=== PATIENT | female | born 1945 | race Caucasian/White ===

== ENCOUNTER 2022-01-25 16:50 | Inpatient (IN) | payer MEDICARE, OTHER ==
[~2022-01-25] VITALS: Ht 157.5 cm; Wt 67.6 kg
[2022-01-25 16:50] VITALS: BP_SYST 166
[2022-01-25] MEDS ORDERED: MORPHINE 4 MG INJ. 4 MG/ML VIAL IM ONE (17:45)
[2022-01-25 18:51] LABS: EOSINOPHILS % (AUTO) 1.1 % (0.0-4.0); HEMATOCRIT 28.5 % (36-48); HEMOGLOBIN 9.7 g/dL (12.0-16.0); LYMPHOCYTES # (AUTO) 0.7 K/uL (1.0-5.5); LYMPHOCYTES % (AUTO) 15.3 % (20.5-51.5); MEAN CORPUSCULAR HEMOGLOBIN 33 pg (27-31); MEAN CORPUSCULAR HGB CONC 34 % (32-36); MEAN CORPUSCULAR VOLUME 97 fL (79.0-98.0); MONOCYTES # (AUTO) 0.6 K/uL (0.0-1.0); MONOCYTES % (AUTO) 13.9 % (1.7-9.3); NEUTROPHILS % (AUTO) 68.7 % (40.0-70.0); PLATELET COUNT (AUTO) 167 K/uL (130-430); RED BLOOD CELL COUNT(AUTO) 2.94 MIL/uL (4.2-6.2); WHITE BLOOD COUNT (AUTO) 4.3 K/uL (4.8-10.8)
[2022-01-25 19:04] LABS: ANION GAP 16 (5-15); BILIRUBIN,URINE NEGATIVE (NEGATIVE); BLOOD, URINE 1+ (NEGATIVE); CALCIUM 8.8 mg/dL (8.4-11.0); CHLORIDE 99 mmol/L (98-107); CLARITY/URINE CLEAR (CLEAR); COLOR,URINE YELLOW (YELLOW); GLUCOSE 100 mg/dL (70-99); GLUCOSE,URINE NEGATIVE (NEGATIVE); KETONES,URINE NEGATIVE (NEGATIVE); LEUKOCYTE ESTERASE ,URINE NEGATIVE (NEGATIVE); NITRITE, URINE NEGATIVE (NEGATIVE); PH,URINE 5.5 (5.0-8.0); POTASSIUM 3.6 mmol/L (3.5-5.1); PROTEIN URINE 1+ (NEGATIVE); UREA NITROGEN, BLOOD 81 mg/dL (8-21); UROBILINOGEN,URINE 0.2 (0.2-1.0)
[2022-01-25 19:10] LABS: CREATININE 8.89 mg/dL (0.55-1.30)
[2022-01-25 19:14] LABS: BACTERIA,URINE FEW /HPF (None Seen); RBC,URINE 0-3 /HPF (0-3); WBC,URINE 0-3 /HPF (0-3)
[2022-01-25] MEDS ORDERED: MORPHINE 2 MG/ML INJ. SYRINGE IVP ONE (21:15)
[2022-01-25] MEDS ORDERED: NS 500 ML IV ONE (21:15)
[2022-01-25] MEDS ORDERED: ONDANSETRON HCL 4 MG/2 ML VIAL IVP PRN (21:45)
[2022-01-26 00:15] VITALS: BP_SYST 154
[2022-01-26] MEDS ORDERED: LORazepam 1 MG TABLET PO PRN (01:15)
[2022-01-26] MEDS ORDERED: LORazepam 1 MG TABLET PO ONE (01:15)
[2022-01-26 08:00] VITALS: BP_SYST 171
[2022-01-26 08:08] LABS: BASOPHILS % (AUTO) 0.9 % (0.0-2.0); EOSINOPHILS # (AUTO) 0.1 K/uL (0.0-0.4); EOSINOPHILS % (AUTO) 2.5 % (0.0-4.0); HEMATOCRIT 28.5 % (36-48); HEMOGLOBIN 9.9 g/dL (12.0-16.0); LYMPHOCYTES # (AUTO) 1.2 K/uL (1.0-5.5); LYMPHOCYTES % (AUTO) 26.3 % (20.5-51.5); MEAN CORPUSCULAR HEMOGLOBIN 34 pg (27-31); MEAN CORPUSCULAR HGB CONC 35 % (32-36); MEAN CORPUSCULAR VOLUME 97 fL (79.0-98.0); MONOCYTES # (AUTO) 0.6 K/uL (0.0-1.0); MONOCYTES % (AUTO) 13.2 % (1.7-9.3); NEUTROPHILS # (AUTO) 2.5 K/uL (1.8-7.7); NEUTROPHILS % (AUTO) 57.1 % (40.0-70.0); PLATELET COUNT (AUTO) 166 K/uL (130-430); RED BLOOD CELL COUNT(AUTO) 2.92 MIL/uL (4.2-6.2); RED CELL DISTRIBUTION WIDTH 19.2 % (9.0-15.0); WHITE BLOOD COUNT (AUTO) 4.5 K/uL (4.8-10.8)
[2022-01-26 08:23] LABS: ALANINE AMINOTRANSFERASE 23 U/L (12-78); ALBUMIN 2.9 g/dL (3.4-4.8); ANION GAP 16 (5-15); ASPARTATE AMINOTRANSFERASE 25 U/L (10-37); CALCIUM 8.3 mg/dL (8.4-11.0); CHLORIDE 101 mmol/L (98-107); GLUCOSE 80 mg/dL (70-99); POTASSIUM 3.4 mmol/L (3.5-5.1); TOTAL BILIRUBIN 0.3 mg/dL (0.0-1.0); UREA NITROGEN, BLOOD 82 mg/dL (8-21)
[2022-01-26 10:01] LABS: CREATININE 9.17 mg/dL (0.55-1.30)
[2022-01-26] MEDS ORDERED: POTASSIUM CHLORIDE 20 MEQ TAB.PRT.SR PO ONE (11:30)
[2022-01-26 12:18] VITALS: BP_SYST 107
[2022-01-26] MEDS ORDERED: iohexoL 350 mgI/mL, 100 ML INFUS..BTL IV ONE (13:07)
[2022-01-26 16:08] VITALS: BP_SYST 153
[2022-01-26] MEDS: LORazepam 1 MG TABLET PO PRN (18:59)
[2022-01-26 20:00] VITALS: BP_SYST 132
[2022-01-26] MEDS: METOPROLOL TARTRATE 50 MG TABLET PO SCH (21:00)
[2022-01-26] MEDS ORDERED: HEPARIN SODIUM,PORCINE 5,000 UNITS/ML VIAL ONE (23:11)
[2022-01-27] VITALS: BP_SYST 135
[2022-01-27] MEDS: LORazepam 1 MG TABLET PO PRN ×3 (01:59→17:12)
[2022-01-27 08:00] VITALS: BP_SYST 160
[2022-01-27] MEDS: PANTOPRAZOLE SODIUM 40 MG TAB PO SCH (08:55)
[2022-01-27] MEDS: METOPROLOL TARTRATE 50 MG TABLET PO SCH ×2 (08:55→20:13)
[2022-01-27] MEDS: FLUoxetine HCL 20 MG CAPSULE (PROzac) PO SCH (08:56)
[2022-01-27] MEDS: ATORVASTATIN 20 MG TABLET PO SCH (08:56)
[2022-01-27] MEDS: NEPHROVITE, (FOLIC ACID/VITAMIN B COMP W-C 1 TAB) PO SCH (08:57)
[2022-01-27] MEDS ORDERED: MEGESTROL ACETATE 400 MG/10 ML UDC PO ONE (11:00)
[2022-01-27] MEDS: HYDROcodone/ACETAMIN 5-325 MG TAB (NORCO/ VICODIN) PO PRN ×2 (11:18→17:57)
[2022-01-27] MEDS: LIDOCAINE PATCH 5% 1 EA TP PRN (11:18)
[2022-01-27 12:00] VITALS: BP_SYST 140
[2022-01-27] MEDS ORDERED: HYDR-3917 PO (12:43)
[2022-01-27] MEDS ORDERED: MEGE400O4 PO (12:45)
[2022-01-27 16:56] VITALS: BP_SYST 153
[2022-01-27 20:00] VITALS: BP_SYST 142
[2022-01-27] MEDS: MEGESTROL ACETATE 400 MG/10 ML UDC PO SCH (20:13)
[2022-01-28 00:17] VITALS: BP_SYST 161
[2022-01-28] MEDS: MORPHINE 2 MG/ML INJ. SYRINGE IVP PRN ×2 (01:32→16:57)
[2022-01-28] MEDS: METOPROLOL TARTRATE 50 MG TABLET PO SCH ×2 (09:00→21:02)
[2022-01-28] MEDS: MEGESTROL ACETATE 400 MG/10 ML UDC PO SCH ×2 (11:04→20:47)
[2022-01-28] MEDS: LORazepam 1 MG TABLET PO PRN ×2 (11:05→23:25)
[2022-01-28] MEDS: HYDROcodone/ACETAMIN 5-325 MG TAB (NORCO/ VICODIN) PO PRN (11:05)
[2022-01-28] MEDS: NEPHROVITE, (FOLIC ACID/VITAMIN B COMP W-C 1 TAB) PO SCH (11:05)
[2022-01-28] MEDS: ATORVASTATIN 20 MG TABLET PO SCH (11:06)
[2022-01-28] MEDS: PANTOPRAZOLE SODIUM 40 MG TAB PO SCH (11:06)
[2022-01-28] MEDS: FLUoxetine HCL 20 MG CAPSULE (PROzac) PO SCH (11:06)
[2022-01-28] MEDS ORDERED: *HEPARIN PER PHARMACY XX ONE (12:45)
[2022-01-28] MEDS ORDERED: HEPARIN SODIUM, PORCINE 10,000 UNITS/ 10 ML VIAL MC ONE (13:00)
[2022-01-28] MEDS ORDERED: HEPARIN SODIUM,PORCINE 5,000 UNITS/ML VIAL SUBCUT SCH (14:00)
[2022-01-28 15:35] VITALS: BP_SYST 140
[2022-01-28 15:53] LABS: BASOPHILS % (AUTO) 0.8 % (0.0-2.0); EOSINOPHILS % (AUTO) 1.2 % (0.0-4.0); HEMATOCRIT 31.5 % (36-48); HEMOGLOBIN 10.6 g/dL (12.0-16.0); LYMPHOCYTES # (AUTO) 0.6 K/uL (1.0-5.5); LYMPHOCYTES % (AUTO) 16.7 % (20.5-51.5); MEAN CORPUSCULAR HEMOGLOBIN 33 pg (27-31); MEAN CORPUSCULAR HGB CONC 34 % (32-36); MEAN CORPUSCULAR VOLUME 97 fL (79.0-98.0); MONOCYTES # (AUTO) 0.5 K/uL (0.0-1.0); MONOCYTES % (AUTO) 13.8 % (1.7-9.3); NEUTROPHILS # (AUTO) 2.6 K/uL (1.8-7.7); NEUTROPHILS % (AUTO) 67.5 % (40.0-70.0); PLATELET COUNT (AUTO) 192 K/uL (130-430); RED BLOOD CELL COUNT(AUTO) 3.25 MIL/uL (4.2-6.2); RED CELL DISTRIBUTION WIDTH 18.8 % (9.0-15.0); WHITE BLOOD COUNT (AUTO) 3.8 K/uL (4.8-10.8)
[2022-01-28 16:07] LABS: ALANINE AMINOTRANSFERASE 19 U/L (12-78); ALBUMIN 2.8 g/dL (3.4-4.8); ANION GAP 12 (5-15); ASPARTATE AMINOTRANSFERASE 26 U/L (10-37); CHLORIDE 100 mmol/L (98-107); CREATININE 3.34 mg/dL (0.55-1.30); GLUCOSE 91 mg/dL (70-99); POTASSIUM 3.5 mmol/L (3.5-5.1); TOTAL BILIRUBIN 0.7 mg/dL (0.0-1.0); UREA NITROGEN, BLOOD 23 mg/dL (8-21)
[2022-01-28 16:29] LABS: PROTHROMBIN TIME 10.1 SECS (9.5-12.5)
[2022-01-28 20:30] VITALS: BP_SYST 165
[2022-01-29 05:00] VITALS: BP_SYST 163
[2022-01-29] MEDS: HYDROcodone/ACETAMIN 5-325 MG TAB (NORCO/ VICODIN) PO PRN (05:02)
[2022-01-29] MEDS: LORazepam 1 MG TABLET PO PRN (12:13)
[2022-01-29] MEDS: FLUoxetine HCL 20 MG CAPSULE (PROzac) PO SCH (12:14)
[2022-01-29] MEDS: ATORVASTATIN 20 MG TABLET PO SCH (12:14)
[2022-01-29] MEDS: MEGESTROL ACETATE 400 MG/10 ML UDC PO SCH ×2 (12:14→20:50)
[2022-01-29] MEDS: NEPHROVITE, (FOLIC ACID/VITAMIN B COMP W-C 1 TAB) PO SCH (12:14)
[2022-01-29] MEDS: LIDOCAINE PATCH 5% 1 EA TP PRN (12:15)
[2022-01-29] MEDS: PANTOPRAZOLE SODIUM 40 MG TAB PO SCH (12:16)
[2022-01-29] MEDS: METOPROLOL TARTRATE 50 MG TABLET PO SCH ×2 (12:27→20:50)
[2022-01-29 12:30] VITALS: BP_SYST 158
[2022-01-29] MEDS: MORPHINE 2 MG/ML INJ. SYRINGE IVP PRN (13:39)
[2022-01-29] MEDS ORDERED: QUEtiapine FUMARATE 200 MG TAB.SR.24H PO SCH (13:45)
[2022-01-29] MEDS ORDERED: QUEtiapine FUMARATE 200 MG TAB.SR.24H PO ONE (14:30)
[2022-01-29 16:00] VITALS: BP_SYST 160
[2022-01-29 20:00] VITALS: BP_SYST 140
[2022-01-30] VITALS: BP_SYST 138
[2022-01-30] MEDS: MORPHINE 2 MG/ML INJ. SYRINGE IVP PRN ×2 (01:51→21:48)
[2022-01-30] MEDS: FLUoxetine HCL 20 MG CAPSULE (PROzac) PO SCH (11:00)
[2022-01-30] MEDS: ATORVASTATIN 20 MG TABLET PO SCH (11:00)
[2022-01-30] MEDS: MEGESTROL ACETATE 400 MG/10 ML UDC PO SCH ×2 (11:00→21:48)
[2022-01-30] MEDS: PANTOPRAZOLE SODIUM 40 MG TAB PO SCH (11:00)
[2022-01-30] MEDS: METOPROLOL TARTRATE 50 MG TABLET PO SCH ×2 (11:01→21:48)
[2022-01-30] MEDS: NEPHROVITE, (FOLIC ACID/VITAMIN B COMP W-C 1 TAB) PO SCH (11:01)
[2022-01-30 11:55] VITALS: BP_SYST 154
[2022-01-30 17:11] VITALS: BP_SYST 148
[2022-01-30] MEDS: QUEtiapine FUMARATE 200 MG TAB.SR.24H PO SCH (18:10)
[2022-01-31 01:03] VITALS: BP_SYST 159
[2022-01-31] MEDS: MORPHINE 2 MG/ML INJ. SYRINGE IVP PRN (02:31)
[2022-01-31 05:43] VITALS: BP_SYST 146
[2022-01-31 07:12] LABS: BASOPHILS % (AUTO) 0.7 % (0.0-2.0); EOSINOPHILS # (AUTO) 0.1 K/uL (0.0-0.4); EOSINOPHILS % (AUTO) 3.4 % (0.0-4.0); HEMATOCRIT 30.3 % (36-48); HEMOGLOBIN 10.2 g/dL (12.0-16.0); LYMPHOCYTES % (AUTO) 24.9 % (20.5-51.5); MEAN CORPUSCULAR HEMOGLOBIN 33 pg (27-31); MEAN CORPUSCULAR HGB CONC 34 % (32-36); MEAN CORPUSCULAR VOLUME 98 fL (79.0-98.0); MONOCYTES # (AUTO) 0.4 K/uL (0.0-1.0); MONOCYTES % (AUTO) 9.8 % (1.7-9.3); NEUTROPHILS # (AUTO) 2.4 K/uL (1.8-7.7); NEUTROPHILS % (AUTO) 61.2 % (40.0-70.0); PLATELET COUNT (AUTO) 183 K/uL (130-430); RED BLOOD CELL COUNT(AUTO) 3.11 MIL/uL (4.2-6.2); WHITE BLOOD COUNT (AUTO) 3.8 K/uL (4.8-10.8)
[2022-01-31 08:17] LABS: ALANINE AMINOTRANSFERASE 15 U/L (12-78); ALBUMIN 2.9 g/dL (3.4-4.8); ANION GAP 15 (5-15); ASPARTATE AMINOTRANSFERASE 23 U/L (10-37); CALCIUM 9.2 mg/dL (8.4-11.0); CHLORIDE 94 mmol/L (98-107); GLUCOSE 107 mg/dL (70-99); PHOSPHORUS 7.6 mg/dL (2.7-4.5); POTASSIUM 3.6 mmol/L (3.5-5.1); TOTAL BILIRUBIN 0.5 mg/dL (0.0-1.0); UREA NITROGEN, BLOOD 68 mg/dL (8-21)
[2022-01-31 10:10] LABS: CREATININE 8.47 mg/dL (0.55-1.30)
[2022-01-31] MEDS: MEGESTROL ACETATE 400 MG/10 ML UDC PO SCH ×2 (11:30→21:16)
[2022-01-31] MEDS: METOPROLOL TARTRATE 50 MG TABLET PO SCH ×2 (11:31→21:00)
[2022-01-31] MEDS: NEPHROVITE, (FOLIC ACID/VITAMIN B COMP W-C 1 TAB) PO SCH (11:31)
[2022-01-31] MEDS: ATORVASTATIN 20 MG TABLET PO SCH (11:32)
[2022-01-31] MEDS: amLODIPine BESYLATE 5 MG TABLET PO SCH (11:32)
[2022-01-31] MEDS: PANTOPRAZOLE SODIUM 40 MG TAB PO SCH (11:32)
[2022-01-31] MEDS: FLUoxetine HCL 20 MG CAPSULE (PROzac) PO SCH (11:33)
[2022-01-31 13:45] VITALS: BP_SYST 154
[2022-01-31] MEDS: QUEtiapine FUMARATE 200 MG TAB.SR.24H PO SCH (18:44)
[2022-01-31 18:48] VITALS: BP_SYST 116
[2022-01-31 20:00] VITALS: BP_SYST 74
[2022-01-31 20:45] VITALS: BP_SYST 102
[2022-01-31] MEDS ORDERED: NS 500 ML IV ONE (21:00)
[2022-02-01] VITALS (7 sets, daily range): BP systolic 107–150
[2022-02-01] MEDS: MEGESTROL ACETATE 400 MG/10 ML UDC PO SCH ×2 (08:33→21:00)
[2022-02-01] MEDS: FLUoxetine HCL 20 MG CAPSULE (PROzac) PO SCH (08:34)
[2022-02-01] MEDS: NEPHROVITE, (FOLIC ACID/VITAMIN B COMP W-C 1 TAB) PO SCH (08:34)
[2022-02-01] MEDS: METOPROLOL TARTRATE 50 MG TABLET PO SCH ×2 (08:34→21:00)
[2022-02-01] MEDS: PANTOPRAZOLE SODIUM 40 MG TAB PO SCH (08:35)
[2022-02-01] MEDS: amLODIPine BESYLATE 5 MG TABLET PO SCH (08:35)
[2022-02-01] MEDS: ATORVASTATIN 20 MG TABLET PO SCH (08:35)
[2022-02-01 08:37] LABS: ANION GAP 10 (5-15); CHLORIDE 98 mmol/L (98-107); CREATININE 6.37 mg/dL (0.55-1.30); GLUCOSE 110 mg/dL (70-99); POTASSIUM 3.7 mmol/L (3.5-5.1); UREA NITROGEN, BLOOD 44 mg/dL (8-21)
[2022-02-01] MEDS ORDERED: LORazepam 2 MG/ML VIAL IVP ONE (12:45)
[2022-02-01] MEDS ORDERED: LORazepam 2 MG/ML VIAL IM ONE (13:00)
[2022-02-01] MEDS: QUEtiapine FUMARATE 100 MG TABLET PO SCH (21:00)
[2022-02-02] VITALS: BP_SYST 138
[2022-02-02 04:00] VITALS: BP_SYST 133
[2022-02-02 08:00] VITALS: BP_SYST 155
[2022-02-02] MEDS: METOPROLOL TARTRATE 50 MG TABLET PO SCH ×2 (10:03→20:37)
[2022-02-02] MEDS: MEGESTROL ACETATE 400 MG/10 ML UDC PO SCH ×2 (10:03→20:36)
[2022-02-02] MEDS: ATORVASTATIN 20 MG TABLET PO SCH (10:03)
[2022-02-02] MEDS: PANTOPRAZOLE SODIUM 40 MG TAB PO SCH (10:04)
[2022-02-02] MEDS: amLODIPine BESYLATE 5 MG TABLET PO SCH (10:04)
[2022-02-02] MEDS: FLUoxetine HCL 20 MG CAPSULE (PROzac) PO SCH (10:04)
[2022-02-02] MEDS: NEPHROVITE, (FOLIC ACID/VITAMIN B COMP W-C 1 TAB) PO SCH (10:20)
[2022-02-02] MEDS: LIDOCAINE PATCH 5% 1 EA TP PRN (10:20)
[2022-02-02] MEDS: LORazepam 1 MG TABLET PO PRN ×2 (10:20→18:24)
[2022-02-02] MEDS ORDERED: HEPARIN SODIUM,PORCINE 5,000 UNITS/ML VIAL MC ONE (12:00)
[2022-02-02] MEDS ORDERED: HEPARIN SODIUM,PORCINE 5,000 UNITS/ML VIAL ONE (12:01)
[2022-02-02 12:21] VITALS: BP_SYST 116
[2022-02-02 18:18] VITALS: BP_SYST 125
[2022-02-02 20:00] VITALS: BP_SYST 121
[2022-02-02] MEDS: QUEtiapine FUMARATE 100 MG TABLET PO SCH (21:00)
[2022-02-03] MEDS: LORazepam 1 MG TABLET PO PRN (00:28)
[2022-02-03 00:33] VITALS: BP_SYST 101
[2022-02-03] MEDS ORDERED: QUEtiapine FUMARATE 100 MG TABLET PO PRN (01:15)
[2022-02-03 08:00] VITALS: BP_SYST 134
[2022-02-03] MEDS: MEGESTROL ACETATE 400 MG/10 ML UDC PO SCH ×2 (09:10→22:13)
[2022-02-03] MEDS: FLUoxetine HCL 20 MG CAPSULE (PROzac) PO SCH (09:10)
[2022-02-03] MEDS: ATORVASTATIN 20 MG TABLET PO SCH (09:11)
[2022-02-03] MEDS: METOPROLOL TARTRATE 50 MG TABLET PO SCH ×2 (09:11→22:14)
[2022-02-03] MEDS: amLODIPine BESYLATE 5 MG TABLET PO SCH (09:12)
[2022-02-03] MEDS: PANTOPRAZOLE SODIUM 40 MG TAB PO SCH (09:13)
[2022-02-03] MEDS: NEPHROVITE, (FOLIC ACID/VITAMIN B COMP W-C 1 TAB) PO SCH (09:13)
[2022-02-03 12:00] VITALS: BP_SYST 149
[2022-02-03 16:00] VITALS: BP_SYST 150
[2022-02-03 20:00] VITALS: BP_SYST 156
[2022-02-03] MEDS: QUEtiapine FUMARATE 100 MG TABLET PO SCH (22:14)
[2022-02-04 00:02] VITALS: BP_SYST 155
[2022-02-04 08:26] VITALS: BP_SYST 128
[2022-02-04] MEDS: MEGESTROL ACETATE 400 MG/10 ML UDC PO SCH (09:00)
[2022-02-04] MEDS: NEPHROVITE, (FOLIC ACID/VITAMIN B COMP W-C 1 TAB) PO SCH (09:00)
[2022-02-04] MEDS: amLODIPine BESYLATE 5 MG TABLET PO SCH (09:00)
[2022-02-04] MEDS: PANTOPRAZOLE SODIUM 40 MG TAB PO SCH (09:00)
[2022-02-04] MEDS: FLUoxetine HCL 20 MG CAPSULE (PROzac) PO SCH (09:00)
[2022-02-04] MEDS: ATORVASTATIN 20 MG TABLET PO SCH (09:00)
[2022-02-04] MEDS: METOPROLOL TARTRATE 50 MG TABLET PO SCH (09:00)
[2022-02-04 11:35] VITALS: BP_SYST 166
[2022-02-04 15:18] VITALS: BP_SYST 131
[2022-02-04 15:35] VITALS: BP_SYST 132
== END 2022-02-04 17:05 | disposition hospice, home (50) | DRG 840 ==
LOC: SED 16:50 → STU 21:38 → OBSVTOIN 21:38 → STU 23:30 → SMU 01-29 21:39 → STU 01-31 23:01 → SMU 02-01 10:56
PROVIDERS: ADMIT Internal Medicine; ATTEND Internal Medicine
PROC: 5A1D70Z Performance of Urinary Filtration, Intermittent, Less than 6 Hours Per Day (ICD-10-PCS; principal; 2021-12-26)
PROC: 5A1D70Z Performance of Urinary Filtration, Intermittent, Less than 6 Hours Per Day (ICD-10-PCS; 2022-01-28)
PROC: 5A1D70Z Performance of Urinary Filtration, Intermittent, Less than 6 Hours Per Day (ICD-10-PCS; 2022-01-31)
PROC: 5A1D70Z Performance of Urinary Filtration, Intermittent, Less than 6 Hours Per Day (ICD-10-PCS; 2022-02-02)
PROC: 5A1D70Z Performance of Urinary Filtration, Intermittent, Less than 6 Hours Per Day (ICD-10-PCS; 2022-02-04)
DX: C90.00 Multiple myeloma not having achieved remission (principal); N18.6 End stage renal disease; E46 Unspecified protein-calorie malnutrition; M54.16 Radiculopathy, lumbar region; G62.9 Polyneuropathy, unspecified; M81.0 Age-related osteoporosis without current pathological fracture; E11.22 Type 2 diabetes mellitus with diabetic chronic kidney disease; G30.9 Alzheimer's disease, unspecified; F02.80 Dementia in other diseases classified elsewhere, unspecified severity, without behavioral disturbance, psychotic disturbance, mood disturbance, and anxiety; M19.90 Unspecified osteoarthritis, unspecified site; Z20.822 Contact with and (suspected) exposure to COVID-19; R62.7 Adult failure to thrive; D63.1 Anemia in chronic kidney disease; G89.29 Other chronic pain; M54.9 Dorsalgia, unspecified; Z99.2 Dependence on renal dialysis; F41.9 Anxiety disorder, unspecified; Z79.899 Other long term (current) drug therapy; Z68.27 Body mass index [BMI] 27.0-27.9, adult
CPT/HCPCS: 36415; 70450-TC; 72132-TC; 72148; 76376; 80048; 80053; 81000; 82607; 82962; 83735; 84100; 84484; 85025; 85610-TC; 87081; 90935; 90937; 93005; 97110-GP; 97530-GP; G0378; J1644; J2060; J2270; Q9967